=== PATIENT | female | born 1950 | race Caucasian/White ===

== ENCOUNTER → 2017-02-20 | Outpatient (CLI) | payer MEDICARE | END | disposition disaster alternative care site (69) | LOC: GAIR 19:30 | DX: R56.9 Unspecified convulsions (principal); F32.9 Major depressive disorder, single episode, unspecified; G35 Multiple sclerosis; M83.9 Adult osteomalacia, unspecified; N20.0 Calculus of kidney; Z79.899 Other long term (current) drug therapy; Z88.2 Allergy status to sulfonamides | CPT/HCPCS: A0422; A0431; A0436; J0360; J3010 ==